=== PATIENT | male | born 1990 | race Caucasian/White ===

== ENCOUNTER 2016-04-10 10:13 | Emergency (ER) | payer SELFPAY ==
[~2016-04-10] VITALS: Ht 180.3 cm; Wt 56.8 kg
[~2016-04-10 10:13] MED LIST: PROZ40CA PO; SERO200T PO; XANA2TAB2 PO; [UNRECOGNIZED DRUG - OTHER] PO
[2016-04-10 10:35] VITALS: BP 132/93; PULSE 87; RESP 16; TEMP 99; O2SAT 100
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
[2016-04-10] MEDS ORDERED: KETOROLAC TROMETHAMINE 60 MG/2 ML (IM) VIAL IM ONE (11:15)
[2016-04-10] MEDS ORDERED: ASPI325T PO (11:23)
[2016-04-10] MEDS ORDERED: [UNRECOGNIZED DRUG - CODE] (11:23)
[2016-04-10] MEDS ORDERED: PERC7.5T13 PO (11:23)
== END 2016-04-10 11:20 | disposition home or self-care (01) ==
LOC: PHED 10:13
DX: S01.81XD Laceration without foreign body of other part of head, subsequent encounter (principal); S61.412D Laceration without foreign body of left hand, subsequent encounter; Z48.02 Encounter for removal of sutures; Z72.0 Tobacco use; Z87.19 Personal history of other diseases of the digestive system; X58.XXXD Exposure to other specified factors, subsequent encounter
CPT/HCPCS: 96372; 99282; J1885

== ENCOUNTER 2016-08-13 19:55 | Emergency (ER) | payer SELFPAY ==
[~2016-08-13] VITALS: Ht 180.3 cm; Wt 65.0 kg
[~2016-08-13 19:55] MED LIST changes: +ASPI325T PO; +PERC7.5T13 PO; -PROZ40CA PO; +[UNRECOGNIZED DRUG - CODE]; -[UNRECOGNIZED DRUG - OTHER] PO
[2016-08-13 20:07] VITALS: BP 107/77; PULSE 110; RESP 20; TEMP 98.7; O2SAT 98
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
[2016-08-13 21:05] LABS: AUTOMATED NEUTROPHIL # 3.5 TH/MM3 (1.8-7.7); BASOPHIL % 0.6 % (0.0-2.0); EOSINOPHIL # 0.1 TH/MM3 (0-0.4); EOSINOPHIL % 2.5 % (0.0-4.0); HEMATOCRIT 36.9 % (39.0-51.0); HEMO FLAGS DIFF FINAL; LYMPHOCYTE # 1.4 TH/MM3 (1.0-4.8); MEAN CELL VOLUME 88.8 FL (80.0-100.0); MEAN CORPUSCULAR HEMOGLOBIN 29.7 PG (27.0-34.0); MEAN CORPUSCULAR HGB CONC 33.4 % (32.0-36.0); MONO % 4.7 % (0.0-8.0); NEUT % 65.2 % (16.0-70.0); PLATELET COUNT 248 TH/MM3 (150-450); RED BLOOD COUNT 4.15 MIL/MM3 (4.50-5.90); WHITE BLOOD COUNT 5.3 TH/MM3 (4.0-11.0)
[2016-08-13 21:14] LABS: AMPHETAMINE, URINE NEG (NEG); BARBITURATES, URINE NEG (NEG); COCAINE, URINE NEG (NEG)
[2016-08-13 21:20] LABS: ANION GAP 10 MEQ/L (5-15)
[2016-08-13 21:23] LABS: ALKALINE PHOSPHATASE 80 U/L (45-117); ALT (GPT) 18 U/L (12-78); AST (GOT) 12 U/L (15-37); BICARBONATE 23.4 MEQ/L (21.0-32.0); BLOOD UREA NITROGEN 11 MG/DL (7-18); CHLORIDE 112 MEQ/L (98-107); GLOMERULAR FILTRATION RATE 102 ML/MIN (>89); POTASSIUM 3.7 MEQ/L (3.5-5.1); SODIUM (NA) 145 MEQ/L (136-145); TOTAL BILIRUBIN ADULT 0.8 MG/DL (0.2-1.0)
[2016-08-13] MEDS ORDERED: LORazepam 1 MG TAB PO ONE (23:15)
[2016-08-13 23:51] VITALS: BP 106/75; PULSE 88; RESP 17; O2SAT 100
[2016-08-14 02:13] VITALS: BP 99/60; PULSE 82; RESP 17; O2SAT 99
[2016-08-14 06:00] VITALS: BP 115/76; PULSE 74; RESP 16; O2SAT 100
[2016-08-14 11:03] VITALS: BP 122/80; PULSE 96; RESP 18; TEMP 97.6; O2SAT 99
[2016-08-14 11:05] VITALS: BP 98/53; PULSE 88; RESP 18; TEMP 97; O2SAT 98
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
== END 2016-08-14 13:45 | disposition home or self-care (01) ==
LOC: NEPD 19:55 → NEPJ 08-14 13:45
DX: F19.14 Other psychoactive substance abuse with psychoactive substance-induced mood disorder (principal); Z79.899 Other long term (current) drug therapy
CPT/HCPCS: 80053; 80307; 85025; 99283

== ENCOUNTER 2016-09-19 22:11 | Emergency (ER) | payer SELFPAY ==
[~2016-09-19] VITALS: Ht 175.3 cm; Wt 66.0 kg
[~2016-09-19 22:11] MED LIST changes: -[UNRECOGNIZED DRUG - CODE]
[2016-09-19 22:23] VITALS: BP 126/89; PULSE 83; RESP 18; TEMP 97.9; O2SAT 100
[2016-09-19] MEDS ORDERED: SODIUM CHLOR 0.9% 1000 ML INJ 1,000 ML IV SCH (22:37)
[2016-09-19 22:40] VITALS: RESP 18; O2SAT 100
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
[2016-09-19] MEDS ORDERED: SODIUM CHLORIDE 0.9% FLUSH 10 ML FLUSH IV FLUSH PRN (22:45)
[2016-09-19 22:48] LABS: AUTOMATED NEUTROPHIL # 5.2 TH/MM3 (1.8-7.7); BASOPHIL # 0.1 TH/MM3 (0-0.2); BASOPHIL % 1.3 % (0.0-2.0); EOSINOPHIL % 0.4 % (0.0-4.0); HEMATOCRIT 36.7 % (39.0-51.0); HEMO FLAGS DIFF FINAL; LYMPH % 19.3 % (9.0-44.0); LYMPHOCYTE # 1.5 TH/MM3 (1.0-4.8); MEAN CELL VOLUME 86.9 FL (80.0-100.0); MEAN CORPUSCULAR HGB CONC 35.7 % (32.0-36.0); MONO % 11.6 % (0.0-8.0); NEUT % 67.4 % (16.0-70.0); PLATELET COUNT 185 TH/MM3 (150-450); RED BLOOD COUNT 4.23 MIL/MM3 (4.50-5.90); RED CELL DISTRIBUTION WIDTH 11.3 % (11.6-17.2); WHITE BLOOD COUNT 7.7 TH/MM3 (4.0-11.0)
[2016-09-19 22:55] LABS: CHLORIDE 101 MEQ/L (98-107); POTASSIUM 3.5 MEQ/L (3.5-5.1); SODIUM (NA) 141 MEQ/L (136-145)
[2016-09-19 22:59] LABS: ANION GAP 11 MEQ/L (5-15); BICARBONATE 28.6 MEQ/L (21.0-32.0); BLOOD UREA NITROGEN 8 MG/DL (7-18)
[2016-09-19 23:02] LABS: ALT (GPT) 38 U/L (12-78); AST (GOT) 47 U/L (15-37); GLOMERULAR FILTRATION RATE 93 ML/MIN (>89)
[2016-09-19 23:03] LABS: TOTAL BILIRUBIN ADULT 3.4 MG/DL (0.2-1.0)
[2016-09-19 23:05] LABS: ALKALINE PHOSPHATASE 101 U/L (45-117)
[2016-09-19] MEDS ORDERED: ONDANSETRON HCL 4 MG/2 ML VIAL IV PUSH ONE ×2 (23:15→23:45)
--- NOTE | 2016-09-19 23:25 | RADHPO ---
EXAM DATE/TIME: 09/19/2016 22:52 [facility] COMPARISON: CT BRAIN W/O CONTRAST, April 07, 2015, 1:19. INDICATIONS : Fell and hit head. RADIATION DOSE: 57.80 CTDIvol (mGy) MEDICAL HISTORY : Gastroparesis. Ulcers. SURGICAL HISTORY : Colon resection. rectal prolapse repair ENCOUNTER: Initial ACUITY: 1 day PAIN SCALE: 0/10 LOCATION: cranial TECHNIQUE: Multiple contiguous axial images were obtained of the head. Using automated exposure control and adj ustment of the mA and/or kV according to patient size, radiation dose was kept as low as reasonably a chievable to obtain optimal diagnostic quality images. FINDINGS: There is no evidence for intracranial hemorrhage, mass effect, mass lesions, edema, or extra-axial fl uid collections. The visualized bony structures appear intact. The ventricles are normal size for t he patient's age. There are no signs of acute infarction for technique. There is slight mucoperioste al thickening of right eithmoid air cells, however improved. CONCLUSION: Unremarkable stud except for mild mucosal swelling of right eithmoid air cells. Ambrosio Gonsales MD on September 19, 2016 at 23:21 Board Certified Radiologist. This report was verified electronically.
--- NOTE | 2016-09-19 23:27 | RADHPO ---
EXAM DATE/TIME: 09/19/2016 22:52 [facility] COMPARISON: No previous studies available for comparison. INDICATIONS : Fall RADIATION DOSE: 25.09 CTDIvol (mGy) MEDICAL HISTORY : Gastroparesis. Ulcers. SURGICAL HISTORY : Colon resection. rectal prolapse repair ENCOUNTER: Initial ACUITY: 1 day PAIN SCALE: 0/10 LOCATION: neck TECHNIQUE: Volumetric scanning of the cervical spine was performed. Multiplanar reconstructions in the sagittal, coronal and oblique axial planes were performed. Using automated exposure control and adjustment o f the mA and/or kV according to patient size, radiation dose was kept as low as reasonably achievable to obtain optimal diagnostic quality images. FINDINGS: No significant subluxation or soft tissue swelling is seen. No definite fracture is seen for techniqu e. C2-C3: No appreciable compromised to the thecal sac, exiting nerve roots are seen. The neural shon wade are patent bilaterally. No appreciable thecal sac stenosis is seen. C3-C4: No appreciable compromised to the thecal sac, exiting nerve roots are seen. The neural shon wade are patent bilaterally. No appreciable thecal sac stenosis is seen. C4-C5: No appreciable compromised to the thecal sac, exiting nerve roots are seen. The neural shon wade are patent bilaterally. No appreciable thecal sac stenosis is seen. C5-C6: No appreciable compromised to the thecal sac, exiting nerve roots are seen. The neural shon wade are patent bilaterally. No appreciable thecal sac stenosis is seen. C6-C7: No appreciable compromised to the thecal sac, exiting nerve roots are seen. The neural shon wade are patent bilaterally. No appreciable thecal sac stenosis is seen. C7-T1: No appreciable compromised to the thecal sac, exiting nerve roots are seen. The neural shon wade are patent bilaterally. No appreciable thecal sac stenosis is seen CONCLUSION: Unremarkable study. Ambrosio Gonsales MD on September 19, 2016 at 23:23 Board Certified Radiologist. This report was verified electronically.
[2016-09-19] MEDS ORDERED: ZOFR4TAB3 SL (23:41)
[2016-09-19 23:47] VITALS: BP 128/72; PULSE 74; RESP 18; O2SAT 100
== END 2016-09-20 | disposition home or self-care (01) ==
LOC: PHED 22:11
DX: S00.83XA Contusion of other part of head, initial encounter (principal); S00.81XA Abrasion of other part of head, initial encounter; F10.920 Alcohol use, unspecified with intoxication, uncomplicated; K31.84 Gastroparesis; K21.9 Gastro-esophageal reflux disease without esophagitis; Z72.0 Tobacco use; Y04.0XXA Assault by unarmed brawl or fight, initial encounter
CPT/HCPCS: 70450; 72125; 80053; 80307; 85025; 96361; 96374; 96375; 99285; J2405; J7030

== ENCOUNTER 2017-03-26 17:12 | Emergency (ER) | payer SELFPAY ==
[~2017-03-26] VITALS: Ht 180.3 cm; Wt 49.3 kg
[~2017-03-26 17:12] MED LIST changes: +ASPI-183 PO; -ASPI325T PO; -PERC7.5T13 PO; -XANA2TAB2 PO; +ZOFR4TAB3 SL
[2017-03-26 17:18] VITALS: BP 111/71; PULSE 113; RESP 18; TEMP 99.5; O2SAT 100
[2017-03-26] MEDS ORDERED: SODIUM CHLOR 0.9% 1000 ML INJ 1,000 ML IV ONE (18:52)
[2017-03-26] MEDS ORDERED: KETOROLAC TROMETHAMINE 30 MG/ML (IVP) VIAL IV PUSH ONE (19:00)
[2017-03-26] MEDS ORDERED: XANA2TAB2 PO (19:00)
[2017-03-26] MEDS ORDERED: ZOLO25TA PO (19:00)
[2017-03-26] MEDS ORDERED: GABA300C5 PO (19:00)
[2017-03-26] MEDS ORDERED: REME30TA PO (19:00)
[2017-03-26] MEDS ORDERED: VANCOMYCIN INJ 1,000 MG in SODIUM CHLOR 0.9% 250 ML INJ 250 ML IV ONE (19:00)
[2017-03-26] MEDS ORDERED: ACETAMINOPHEN 325 MG TAB PO ONE (19:00)
[2017-03-26 19:05] VITALS: O2SAT 99
[2017-03-26 19:27] VITALS: BP 113/82; PULSE 71; RESP 18; O2SAT 99
[2017-03-26 19:31] LABS: AUTOMATED NEUTROPHIL # 6.3 TH/MM3 (1.8-7.7); BASOPHIL % 0.3 % (0.0-2.0); EOSINOPHIL # 0.1 TH/MM3 (0-0.4); EOSINOPHIL % 1.8 % (0.0-4.0); HEMATOCRIT 36.1 % (39.0-51.0); HEMOGLOBIN 11.7 GM/DL (13.0-17.0); LYMPH % 11.8 % (9.0-44.0); MEAN CELL VOLUME 91.2 FL (80.0-100.0); MEAN CORPUSCULAR HEMOGLOBIN 29.6 PG (27.0-34.0); MEAN CORPUSCULAR HGB CONC 32.5 % (32.0-36.0); MEAN PLATELET VOLUME 7.6 FL (7.0-11.0); MONOCYTE # 0.7 TH/MM3 (0-0.9); NEUT % 77.1 % (16.0-70.0); PLATELET COUNT 168 TH/MM3 (150-450); RED BLOOD COUNT 3.95 MIL/MM3 (4.50-5.90); RED CELL DISTRIBUTION WIDTH 13.9 % (11.6-17.2); WHITE BLOOD COUNT 8.1 TH/MM3 (4.0-11.0)
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
[2017-03-26 19:50] LABS: PROTHROMBIN TIME - PATIENT 10.2 SEC (9.8-11.6)
[2017-03-26 20:19] LABS: ALBUMIN 3.7 GM/DL (3.4-5.0); ALKALINE PHOSPHATASE 78 U/L (45-117); ALT (GPT) 31 U/L (12-78); AST (GOT) 31 U/L (15-37); BICARBONATE 28.9 MEQ/L (21.0-32.0); BLOOD UREA NITROGEN 8 MG/DL (7-18); CALCIUM 8.8 MG/DL (8.5-10.1); CHLORIDE 100 MEQ/L (98-107); CREATININE 0.83 MG/DL (0.60-1.30); GLOMERULAR FILTRATION RATE 110 ML/MIN (>89); GLUCOSE,RANDOM 109 MG/DL (74-106); SODIUM (NA) 136 MEQ/L (136-145); TOTAL BILIRUBIN ADULT 1.2 MG/DL (0.2-1.0); TOTAL PROTEIN 7.4 GM/DL (6.4-8.2)
--- NOTE | 2017-03-26 20:19 | RADRPT ---
EXAM DATE/TIME: 03/26/2017 19:12 [facility] COMPARISON: No previous studies available for comparison. INDICATIONS : Right foot pain and swelling for 2 days. A heavy object fell on it. MEDICAL HISTORY : None. SURGICAL HISTORY : None. ENCOUNTER: Initial ACUITY: 2 days PAIN SCORE: 10/10 LOCATION: Right foot. FINDINGS: Three view examination of the right foot demonstrates no soft tissue swelling, dislocation, or fractu re. The tarsal bones appear intact. The interphalangeal and metatarsophalangeal joints are intact. The calcaneus is intact. Bony mineralization is normal. CONCLUSION: No evidence of recent bony injury. Deniz Kitchen MD on March 26, 2017 at 20:17 Board Certified Radiologist. This report was verified electronically.
--- NOTE | 2017-03-26 20:19 | RADRPT ---
EXAM DATE/TIME: 03/26/2017 19:12 [facility] COMPARISON: No previous studies available for comparison. INDICATIONS : Right ankle pain and swelling for 2 days. A heavy object fell on it. MEDICAL HISTORY : None. SURGICAL HISTORY : None. ENCOUNTER: Initial ACUITY: 2 days PAIN SCORE: 10/10 LOCATION: Right ankle. FINDINGS: Three view exam was performed of the right ankle. The bony structures are in normal alignment. No e vidence of fracture, dislocation, or soft tissue swelling. The ankle mortise is intact. No radiopaq ue foreign bodies are seen. Bony mineralization is normal. CONCLUSION: No evidence of recent bony injury. Deniz Kitchen MD on March 26, 2017 at 20:17 Board Certified Radiologist. This report was verified electronically.
[2017-03-26] MEDS ORDERED: POTASSIUM CHLORIDE 20 MEQ CONTROLLED RELEASE TAB PO ONE (20:30)
[2017-03-26 20:34] VITALS: BP 112/71; PULSE 77; RESP 15; O2SAT 98
[2017-03-26] MEDS ORDERED: BACT800T5 PO (20:36)
[2017-03-26] MEDS ORDERED: DOXY100C PO (20:36)
[2017-03-26] MEDS ORDERED: DOXYCYCLINE HYCLATE 100 MG CAP PO ONE (20:45)
[2017-03-26] MEDS ORDERED: SULFAMETHOXAZOLE-TRIMETHOPRIM DS 800-160 MG TAB PO ONE (20:45)
[2017-03-26 21:09] VITALS: BP 115/70
== END 2017-03-26 21:21 | disposition home or self-care (01) ==
LOC: PHED 17:12
DX: L03.115 Cellulitis of right lower limb (principal); S90.31XA Contusion of right foot, initial encounter; E87.6 Hypokalemia; W20.8XXA Other cause of strike by thrown, projected or falling object, initial encounter
CPT/HCPCS: 73610; 73630; 80053; 83605; 85025; 85610; 85730; 87040; 96361; 96365; 96375; 99284; J1885; J3370; J7030; J7050

== ENCOUNTER 2017-03-30 11:40 | Emergency (ER) | payer SELFPAY ==
[~2017-03-30] VITALS: Ht 180.3 cm; Wt 54.0 kg
[~2017-03-30 11:40] MED LIST changes: -ASPI-183 PO; +BACT800T5 PO; +DOXY100C PO; +GABA300C5 PO; +REME30TA PO; +XANA2TAB2 PO; -ZOFR4TAB3 SL; +ZOLO25TA PO
[2017-03-30 11:46] VITALS: BP 137/76; PULSE 78; RESP 16; TEMP 98.4; O2SAT 100
[2017-03-30] MEDS ORDERED: ZOFR4TAB3 SL (12:04)
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
== END 2017-03-30 12:25 | disposition home or self-care (01) ==
LOC: PHED 11:40
DX: L02.611 Cutaneous abscess of right foot (principal); F41.9 Anxiety disorder, unspecified; F32.9 Major depressive disorder, single episode, unspecified; K21.9 Gastro-esophageal reflux disease without esophagitis; Z87.19 Personal history of other diseases of the digestive system; Z79.899 Other long term (current) drug therapy; Z88.5 Allergy status to narcotic agent; Z88.8 Allergy status to other drugs, medicaments and biological substances
CPT/HCPCS: 10060